=== PATIENT | male | born 1945 | race Caucasian/White ===

== ENCOUNTER → 2017-02-24 | Outpatient (CLI) | payer MEDICARE, OTHER ==
[~2017-02-24] MED LIST: ASPI325T4 PO; BENA5TAB2 PO; CLOP75TA27 PO; DEXT10TA9 PO; EZET10TA3 PO; METO25TA7 PO; PANT40TA4 PO; SOLI5TAB5 PO; TAMS0.4C2 PO
[2017-02-24 11:27] LABS: ADD SCAN DIFF NO
[2017-02-24 11:33] LABS: ADD UMIC NO; URINE BILIRUBIN (Dip) NEGATIVE (NEGATIVE); URINE BLOOD (Dip) NEGATIVE (NEGATIVE); URINE COLOR LT. YELLOW (YELLOW); URINE GLUCOSE (Dip) NEGATIVE (NEGATIVE); URINE KETONES (Dip) NEGATIVE (NEGATIVE); URINE LEUKOCYTE ESTERASE (Dip) NEGATIVE (NEGATIVE); URINE NITRITE (Dip) NEGATIVE (NEGATIVE); URINE TOTAL PROTEIN (Dip) NEGATIVE (NEGATIVE); URINE UROBILINOGEN (Dip) 0.2 E.U./dL (0.1-1.0)
[2017-02-24 11:44] LABS: BASOPHILS % 0.6 % (0.0-2.0); EOSINOPHILS % 0.6 % (0.0-7.0); HEMATOCRIT 43.2 % (42.0-52.0); HEMOGLOBIN 14.7 g/dl (14.0-18.0); LYMPHOCYTES # 1.6 10^3/ul (0.8-2.9); LYMPHOCYTES % 31.5 % (15.0-51.0); MEAN CORPUSCULAR HEMOGLOBIN 31.7 pg (29.0-33.0); MEAN CORPUSCULAR VOLUME 93.1 fl (82.0-101.0); MEAN PLATELET VOLUME 10.7 fl (7.4-10.4); MONOCYTE # 0.4 10^3/ul (0.3-0.9); MONOCYTES % 7.1 % (0.0-11.0); NEUTROPHIL # 3.1 10^3/ul (1.6-7.5); PLATELET COUNT 182 10^3/UL (140-415); RED BLOOD COUNT 4.64 10^6/ul (4.70-6.10); RED CELL DISTRIBUTION WIDTH 12.1 % (11.5-14.5); WHITE BLOOD COUNT 5.2 10^3/ul (4.8-10.8)
[2017-02-24 12:28] LABS: ALBUMIN 4.8 g/dl (3.3-4.9); ALBUMIN/GLOBULIN RATIO 2.08; BILIRUBIN,INDIRECT 0.4 mg/dl (0-1.1); BILIRUBIN,TOTAL 0.4 mg/dl (0.2-1.3); CALCIUM 9.6 mg/dl (8.4-10.2); CHOL/HDL RATIO 2.2 RATIO; CREATININE 1.13 mg/dl (0.61-1.24); POTASSIUM 4.3 mmol/L (3.5-5.1); TOTAL PROTEIN 7.1 g/dl (6.1-8.1)
[2017-02-25 13:19] LABS: PROSTATE SPECIFIC ANTIGEN 2.3 ng/ml (0.0-4.0); THYROID STIMULATING HORMONE 2.32 MIU/L (0.465-4.680)
== END | disposition home or self-care (01) ==
LOC: LAB 10:10
PROVIDERS: ATTEND Internal Medicine
DX: N40.0 Benign prostatic hyperplasia without lower urinary tract symptoms (principal); E78.5 Hyperlipidemia, unspecified; R73.03 Prediabetes; E03.9 Hypothyroidism, unspecified
CPT/HCPCS: 80053; 80061; 81003; 83036; 84153; 84154; 84436; 84443; 85025; 86140

== ENCOUNTER → 2017-03-29 | Outpatient (CLI) | payer MEDICARE, OTHER ==
--- NOTE | 2017-03-29 14:13 | RADRPT ---
PROCEDURE: XR Chest. CLINICAL INDICATION: Cough. TECHNIQUE: Two views. Frontal and lateral. COMPARISON: 05/24/2014. FINDINGS: The lungs are clear. The heart size is normal. There is a coronary artery stent. There is no pleural effusion. There is no pneumothorax. IMPRESSION: 1. Coronary artery stent. 2. Otherwise normal chest radiograph. RPTAT: QQ .Regulo Kaur MD, MD Date Time Electronically viewed and signed by .Regulo Kaur MD, MD on 03/29/2017 14:13 .R/
== END | disposition home or self-care (01) ==
LOC: RAD 13:05
PROVIDERS: ATTEND Internal Medicine
DX: J18.9 Pneumonia, unspecified organism (principal)
CPT/HCPCS: 71020

== ENCOUNTER 2018-07-05 07:56 | Day surgery (SDC) | END 2018-07-05 13:35 | disposition home or self-care (01) ==

== ENCOUNTER → 2018-07-21 | Outpatient (CLI) | END | disposition home or self-care (01) ==

== ENCOUNTER → 2018-07-27 | Outpatient (CLI) | END | disposition home or self-care (01) ==

== ENCOUNTER → 2019-04-28 | Outpatient (CLI) | payer MEDICARE, OTHER ==
[~2019-04-28] MED LIST changes: +ASPI325T30 PO; -ASPI325T4 PO; -BENA5TAB2 PO; +BENA5TAB33 PO; -EZET10TA3 PO; +EZET10TA31 PO; +METO-335 PO; -METO25TA7 PO; +SOLI5TAB2 PO; -SOLI5TAB5 PO
== END | disposition home or self-care (01) ==
LOC: C/S 15:24
PROVIDERS: ATTEND Internal Medicine
DX: R10.9 Unspecified abdominal pain (principal)
CPT/HCPCS: 74176